=== PATIENT | male | born 1990 | race Caucasian/White ===

== ENCOUNTER → 2023-08-21 15:09 | Outpatient (CLI) | payer OTHER, SELFPAY ==
--- NOTE | 2023-08-21 15:11 | DI.US.S_ITS ---
PROCEDURE: US SCROTUM INDICATIONS: TESTICULAR MASS TECHNIQUE: Real-time scanning was performed of the scrotum and testicles, with image documentation. Color and pulse Doppler interrogation was performed of both testicles. COMPARISON: None. FINDINGS: Right: Testicle is normal in size at 4.3 x 2.6 x 2.9 cm, and homogenous in echotexture. Anechoic simple cysts adjacent to the epididymal head measuring 2.2 x 1.3 x 2.6 cm. Epididymis is otherwise normal in overall size and morphology. No hydrocele or varicoceles. Overlying scrotal skin is normal in thickness. Left: Testicle is normal in size at 4.4 x 2.4 x 3.2 cm, and homogeneous in echotexture. Epididymis is normal in overall size and morphology. No hydrocele or varicoceles. Overlying scrotal skin is normal in thickness. Doppler: Color and pulse Doppler demonstrate normal and symmetric arterial flow in both testicles. IMPRESSION: 1. Anechoic simple cyst adjacent to the epididymal head measuring 2.2 x 1.3 x 2.6 cm. No sonographic evidence of suspicious features. 2. Testicular ultrasound is otherwise normal. Dictated by: Claudette Tong M.D. on 08/21/2023 at 16:56 Approved by: Claudette Tong M.D. on 08/21/2023 at 16:58
== END ==
LOC: US 15:10
PROVIDERS: Family Provider Nurse Practitioner; Referring Provider Family Medicine; Visit Provider Family Medicine
DX: N50.89 Other specified disorders of the male genital organs (principal); N50.3 Cyst of epididymis
CPT/HCPCS: 76870; 93975